=== PATIENT | female | born 1995 | race Caucasian/White ===

== ENCOUNTER 2023-09-24 17:24 | Emergency (ER) | payer BC ==
[~2023-09-24] VITALS: Ht 167.6 cm; Wt 147.4 kg
[~2023-09-24 17:24] MED LIST: IRON (FERROUS S50 MG PO; PRENATA3 PO
[2023-09-24 17:45] VITALS: BP 140/85
[2023-09-24 18:00] VITALS: BP 139/88
[2023-09-24 18:15] VITALS: BP 139/90
[2023-09-24 18:30] VITALS: BP 148/90
[2023-09-24 18:46] VITALS: BP 127/80
[2023-09-24 19:00] VITALS: BP 134/75
== END 2023-09-24 19:01 | disposition home or self-care (01) | DRG 153 ==
LOC: ED 17:24
DX: J06.9 Acute upper respiratory infection, unspecified (principal); H69.81 Other specified disorders of Eustachian tube, right ear; Z20.822 Contact with and (suspected) exposure to COVID-19

== ENCOUNTER 2023-09-27 17:02 | Emergency (ER) | payer BC ==
[2023-09-27] VITALS (7 sets, daily range): BP systolic 131–148; BP diastolic 81–91
[~2023-09-27] VITALS: Ht 165.1 cm; Wt 144.2 kg
[2023-09-27] MEDS ORDERED: ACETAMINOPHEN 500 MG TAB PO ONE (17:20)
[2023-09-27 17:47] LABS: BASO% 0.2 % (0-3); EOS% 2.2 % (0-8); HEMATOCRIT 36.9 % (37.0-47.0); HEMOGLOBIN 11.5 g/dl (12.0-16.0); IMMATURE GRANULOCYTES 0.2 % (0.0-5.0); LYMPH% 16.1 % (15-41); MEAN CORPUSCULAR HGB 23.3 pG CALC (26.0-32.0); MEAN CORPUSCULAR HGB CONC 31.2 g/dL CAL (32.0-36.0); MONO% 3.7 % (2-13); NEUT# 7.41 thou/uL (2.00-7.15); NEUT% 77.6 % (42-76); RED BLOOD COUNT 4.94 mill/uL (4.20-5.60)
[2023-09-27 17:54] LABS: MEAN CELL VOLUME 74.7 fL CALC (80.0-100.0)
[2023-09-27] MEDS ORDERED: SODIUM CHLORIDE 0.9% 1,000 ML IV ONE (18:00)
[2023-09-27 18:02] LABS: ALBUMIN 4.3 g/dL (3.2-5.0); CREATININE 0.7 mg/dL (0.5-1.0); POTASSIUM 4.4 mmol/l (3.5-5.1); TOTAL PROTEIN 7.6 g/dL (6.3-8.2)
[2023-09-27 18:03] LABS: BILIRUBIN, TOTAL 0.4 mg/dL (0.02-1.3)
[2023-09-27] MEDS ORDERED: CHERATUSSIN PO (18:30)
[2023-09-27] MEDS ORDERED: ZPAK PO (18:33)
== END 2023-09-27 19:28 | disposition home or self-care (01) | DRG 204 ==
LOC: ED 17:02
PROVIDERS: Family Medicine
DX: R05.9 Cough, unspecified (principal); Z20.822 Contact with and (suspected) exposure to COVID-19